=== PATIENT | male | born 2005 | race Caucasian/White ===

== ENCOUNTER 2023-04-27 21:24 | Emergency (ER) | payer OTHER, SELFPAY ==
[2023-04-27 21:30] VITALS: BP 156/86; PULSE 77; RESP 16; TEMP 36.6; O2SAT 100; BMI 21.6
[2023-04-27 21:45] VITALS: BP 156/86; BP 158/86; BP 165/90; PULSE 67; PULSE 73; PULSE 74; PULSE 77
--- NOTE | 2023-04-27 21:45 | ED_ITS ---
HPI - Dizziness General Chief Complaint: Dizziness Stated Complaint: Dizziness, Weakness Time Seen by Provider: 04/27/23 21:34 Source: patient Mode of arrival: walk-in History of Present Illness HPI Narrative: patient presents complaining of dizziness. States happened once at work yesterday and 3 times today. Describes working and becoming sweaty and nauseated and then sounds become muffled and he feels like he might pass out. he is able to sit down and symptoms resolved. No associated chest pain or palpitations. No sense of his heart racing in his chest. States he has been at this new job for 3 weeks. States he works 10 hour days. Before he work this much he would run 3 miles. Tried to run in the past couple of weeks and only ran a mild because his chest felt tight. He now arrives asymptomatic. Denies history of asthma or HTN MD elicited complaint: Reports near syncope Related Data Home Medications Medication Instructions Recorded Confirmed No Known Home Medications 04/27/23 04/27/23 Allergies Allergy/AdvReac Type Severity Reaction Status Date / Time No Known Drug Allergies Allergy Verified 04/27/23 21:38 Review of Systems ROS Status of ROS 10 or more systems reviewed and unremarkable except as noted in history and below [facility] PFS Social History Smoking status: Never smoker Exam Constitutional Vital Signs, click to edit/add: Last Vital Signs Temp 97.9 F 04/27/23 21:30 Pulse 77 04/27/23 21:45 Resp 16 04/27/23 21:30 BP 156/86 H 04/27/23 21:45 Pulse Ox 100 04/27/23 21:30 O2 Del Method Room Air 04/27/23 21:30 Common normals: no apparent distress, average body habitus, oriented x3, no limitations, healthy appearing, alert and well nourished Eye Common normals: PERRL, EOMs intact bilaterally, conjunctivae normal and no scleral icterus Respiratory Common normals: normal respiratory effort, no retractions, no use of accessory muscles and clear to auscultation bilaterally Cardio Common normals: regular rate, regular rhythm, S1 normal heart sound and S2 normal heart sound GI Common normals: Normal to inspection, nondistended, normoactive bowel sounds present, soft to palpation and non-tender Extremity Common normals: normal to inspection and full ROM Neuro Common normals: oriented x3, CN's II-XII intact bilaterally, moves all extremities, no focal motor deficits and no sensory deficits noted Psych Appearance: grossly normal Course Vital Signs Vital signs: Vital Signs Temperature 97.9 F 04/27/23 21:30 Pulse Rate 77 04/27/23 21:30 Respiratory Rate 16 04/27/23 21:30 Blood Pressure 156/86 H 04/27/23 21:30 Pulse Oximetry 100 04/27/23 21:30 Oxygen Delivery Method Room Air 04/27/23 21:30 Temperature 97.9 F 04/27/23 21:30 Pulse Rate 77 04/27/23 21:45 Respiratory Rate 16 04/27/23 21:30 Blood Pressure 156/86 H 04/27/23 21:45 Pulse Oximetry 100 04/27/23 21:30 Oxygen Delivery Method Room Air 04/27/23 21:30 MDM - Dizziness MDM Narrative Medical decision making narrative: patient presents with recurrent episodes of near syncope. Each time preceded by him sweating, becoming nauseated and then feeling light headed like he may pass out. Able to sit down each time before passing out and then recover. No associated cardiac sensation of tachycardia and no accompanying chest pain Troponin not detectable and d-dimer neg. Cxray clear. found to be hypothyroid which is new to him. patient informed of the working diagnosis of vaso vagal near syncope. Will treat with prilosec, have him drink plenty of fluids. Also provided with a prescription for Synthroid and advised to follow up with his doctor in the next couple of days for recheck and continued workup Lab Data Labs: Lab Results 04/27/23 04/27/23 04/27/23 Range/Units 21:53 21:55 23:11 WBC 5.3 (4.0-11.0) 10^3/uL RBC 5.67 (4.70-6.10) 10^6/uL Hgb 16.1 (14.0-18.0) g/dL Hct 47.3 (42.0-54.0) % MCV 83.4 (80.0-94.0) fL MCH 28.4 (25.9-34.0) pg MCHC 34.0 (29.9-35.2) g/dL RDW 13.2 (11.0-15.0) % Plt Count 199 (150-450) 10^3/uL MPV 10.4 (9.5-13.5) fL Neut % (Auto) 49.5 (43.0-75.0) % Lymph % (Auto) 41.4 (20.5-60.0) % [place] % (Auto) 7.0 (1.7-12.0) % Eos % (Auto) 1.3 (0.9-7.0) % Baso % (Auto) 0.6 (0.2-2.0) % Neut # (Auto) 2.6 (1.4-6.5) 10^3/uL Lymph # (Auto) 2.2 (1.2-3.8) 10^3/uL [place] # (Auto) 0.4 (0.3-0.8) 10^3/uL Eos # (Auto) 0.1 (0.0-0.7) 10^3/uL Baso # (Auto) 0.0 (0.0-0.1) 10^3/uL Abs Immat Gran (auto) 0.01 (0.00-0.03) 10^3/uL Imm/Tot Granulo (auto) 0.2 (0.0-0.5) % D-Dimer 0.33 (<=0.59) mg/L FEU Sodium 140 (136-145) mmol/L Potassium 3.3 L (3.5-5.1) mmol/L Chloride 103 (98-107) mmol/L Carbon Dioxide 27.5 (21.0-32.0) mmol/L Anion Gap 12.8 BUN 12.0 (6.4-19.3) mg/dL Creatinine 1.11 (0.70-1.30) mg/dL Est GFR ( Amer) >60 (>=60) Est GFR (Non-Af Amer) >60 (>=60) BUN/Creatinine Ratio 10.8 Glucose 98 (74-106) mg/dL Calcium 9.4 (8.5-10.1) mg/dL Total Bilirubin 0.3 (0.2-1.0) mg/dL Direct Bilirubin 0.1 (0.0-0.2) mg/dL AST 36 (15-37) U/L ALT 23 (16-63) U/L Alkaline Phosphatase 74 (46-116) U/L Troponin I High Sens <4.0 L (4.0-76.1) pg/mL Total Protein 8.4 H (6.4-8.2) g/dL Albumin 4.9 (3.4-5.0) g/dL Globulin 3.5 g/dL Albumin/Globulin Ratio 1.4 TSH 7.451 H (0.516-4.130) uIU/mL Free T4 0.86 (0.78-1.34) ng/dL Urine Opiates Screen Negative (NEGATIVE) Ur Buprenorphine Scrn Negative (NEGATIVE) Ur Oxycodone Screen Negative (NEGATIVE) Urine Methadone Screen Negative (NEGATIVE) Ur Propoxyphene Screen Negative (NEGATIVE) Ur Barbiturates Screen Negative (NEGATIVE) U Tricyclic Antidepress Negative (NEGATIVE) Ur Phencyclidine Scrn Negative (NEGATIVE) Ur Amphetamines Screen Negative (NEGATIVE) U Methamphetamines Scrn Negative (NEGATIVE) U Benzodiazepines Scrn Negative (NEGATIVE) Urine Cocaine Screen Negative (NEGATIVE) U Cannabinoids Screen Negative (NEGATIVE) POC Glucose 97 (74-106) mg/dL Discharge Plan Discharge Chief Complaint: Dizziness Clinical Impression: Hypothyroid, Near syncope Patient Disposition: Home, Self-Care Prescriptions / Home Meds: No Action No Known Home Medications Instructions: Hypothyroidism (ED), Near Syncope (ED) Additional Instructions: follow up with your doctor in next couple of days for recheck. Drink plenty of fluids. Return if episode recurs Stand Alone Forms: Portal Instructions Referrals: BUDDY RILEY [Primary Care Provider] - 1 week
--- NOTE | 2023-04-27 21:51 | ECG_ITS ---
[facility] Test Date: 2023-04-27 Pat Name: SAMSON RAMIREZ Department: Room: - Gender: Male Joint Terminal Attack Controller: : 2005 Requested By: [id number] Order Number: [id number] Reading MD: AARON KRISHNAMURTHY Measurements Intervals [place] Rate: 83 P: 79 IL: 134 QRS: 75 QRSD: 104 T: 43 QT: 374 QTc: 414 Interpretive Statements 1100 Sinus rhythm 2420 RSR (QR) in lead V1/V2, consistent with right ventricular conduction delay 9130 borderline ECG No previous ECG available for comparison Electronically Signed On 04-29-2023 5:47:31 EDT by AARON KRISHNAMURTHY
--- NOTE | 2023-04-27 21:51 | XR_ITS ---
[address] [address] Patient Name: SAMSON RAMIREZ MRN: [id number] date: 2005 Sex: M Assigned Patient Location: ER Current Patient Location: ER Accession/Order Number: [id number] Exam Date: 04/27/2023 22:10 Report Date: 04/27/2023 22:34 At the request of: JOSE REYES Procedure: XR chest 1V EXAMINATION: CHEST RADIOGRAPH (PORTABLE SINGLE VIEW AP) Exam Date/Time: 04/27/2023 10:10 PM EDT Clinical History: near syncope Comparison: None available RESULT: Lines, tubes, and devices: None. Lungs and pleura: No focal consolidation. No pneumothorax. No pleural effusion. Cardiomediastinal silhouette: Stable cardiomediastinal silhouette. No significant atherosclerotic calcification. Other: No acute osseous process. XR/XR chest 1V IMPRESSION: No acute cardiopulmonary abnormality. Electronically authenticated by: BEATIRZ GAGE Date: 04/27/2023 22:34
[2023-04-27 21:55] LABS: Glucometer 97 mg/dL (74-106)
[2023-04-27 22:08] LABS: Basophils Percent Auto 0.6 % (0.2-2.0); Eosinophils Absolute Auto 0.1 10^3/uL (0.0-0.7); Eosinophils Percent Auto 1.3 % (0.9-7.0); Hematocrit 47.3 % (42.0-54.0); Hemoglobin 16.1 g/dL (14.0-18.0); Immature Granulocytes Abs Auto 0.01 10^3/uL (0.00-0.03); Immature Granulocytes Pct Auto 0.2 % (0.0-0.5); Lymphocytes Absolute Auto 2.2 10^3/uL (1.2-3.8); Lymphocytes Percent Auto 41.4 % (20.5-60.0); Mean Corpuscular Hemoglobin 28.4 pg (25.9-34.0); Mean Corpuscular Volume 83.4 fL (80.0-94.0); Mean Platelet Volume 10.4 fL (9.5-13.5); Monocytes Absolute Auto 0.4 10^3/uL (0.3-0.8); Neutrophils Absolute Auto 2.6 10^3/uL (1.4-6.5); Neutrophils Percent Auto 49.5 % (43.0-75.0); Platelet Count 199 10^3/uL (150-450); Red Blood Count 5.67 10^6/uL (4.70-6.10); Red Cell Distribution Width 13.2 % (11.0-15.0); White Blood Count 5.3 10^3/uL (4.0-11.0)
[2023-04-27 22:22] LABS: D Dimer 0.33 mg/L FEU (<=0.59)
[2023-04-27 22:30] LABS: Anion Gap 12.8; BUN Creatinine Ratio 10.8; Calcium 9.4 mg/dL (8.5-10.1); Carbon Dioxide 27.5 mmol/L (21.0-32.0); Chloride 103 mmol/L (98-107); Estimated GFR (African America >60 (>=60); Estimated GFR (Non-African Ame >60 (>=60); Glucose 98 mg/dL (74-106); Potassium 3.3 mmol/L (3.5-5.1); Sodium 140 mmol/L (136-145); Troponin I High Sensitivity <4.0 pg/mL (4.0-76.1)
[2023-04-27 22:31] LABS: Free T4 0.86 ng/dL (0.78-1.34)
[2023-04-27 22:33] LABS: Alanine Aminotransferase 23 U/L (16-63); Albumin Globulin Ratio 1.4; Albumin Level 4.9 g/dL (3.4-5.0); Alkaline Phosphatase 74 U/L (46-116); Aspartate Amino Transferase 36 U/L (15-37); Bilirubin Direct 0.1 mg/dL (0.0-0.2); Bilirubin Total 0.3 mg/dL (0.2-1.0); Globulin 3.5 g/dL; Thyroid Stimulating Hormone 7.451 uIU/mL (0.516-4.130); Total Protein 8.4 g/dL (6.4-8.2)
[2023-04-27 23:39] LABS: Amphetamine Screen Urine NEGATIVE (NEGATIVE); Barbiturates Screen Urine NEGATIVE (NEGATIVE); Benzodiazepines Screen Urine NEGATIVE (NEGATIVE); Buprenorphine Screen Urine NEGATIVE (NEGATIVE); Cannabinoid Screen Urine NEGATIVE (NEGATIVE); Cocaine Screen Urine NEGATIVE (NEGATIVE); Methadone Screen Urine NEGATIVE (NEGATIVE); Methamphetamines Screen Urine NEGATIVE (NEGATIVE); Opiate Screen Urine NEGATIVE (NEGATIVE); Oxycodone Screen Urine NEGATIVE (NEGATIVE); Phencyclidine Screen Urine NEGATIVE (NEGATIVE); Tricyclic Antidepressant Urine NEGATIVE (NEGATIVE)
[2023-04-28] MEDS: OMEPRAZOLE 40 MG CAPSULE.DR PO (00:06)
== END 2023-04-28 00:18 | disposition home or self-care (01) ==
PROVIDERS: Emergency Provider Internal Medicine; PCP Family Medicine
DX: R55 Syncope and collapse (principal); E03.9 Hypothyroidism, unspecified
CPT/HCPCS: 36415; 71045; 80048; 80076; 80307; 84439; 84443; 84484; 85025; 85378; 93005; 99285

== ENCOUNTER 2023-08-09 18:09 | Emergency (ER) | payer SELFPAY ==
[2023-08-09 18:15] VITALS: BP 173/89; PULSE 80; RESP 16; TEMP 36.7; O2SAT 100; BMI 22.8
--- NOTE | 2023-08-09 18:15 | XR_ITS ---
[place] [id number] Patient Name: SAMSON RAMIREZ MRN: [id number] date: 2005 Sex: M Assigned Patient Location: ED.MAIN Current Patient Location: ED.MAIN Accession/Order Number: [id number] Exam Date: 08/09/2023 18:30 Report Date: 08/09/2023 18:56 At the request of: GLO HAWTHORNE Procedure: XR ankle LT min 3V EXAM: XR ankle LT min 3V HISTORY: Fall in a hole COMPARISON: None. TECHNIQUE: 3 views FINDINGS: No osseous lesion, fracture, dislocation or subluxation. Joint spaces are normal. No visualized effusion. No visualized soft tissue edema. XR/XR ankle LT min 3V IMPRESSION: Normal x-rays Electronically authenticated by: KARINA HANCOCK Date: 08/09/2023 18:56
--- NOTE | 2023-08-09 18:15 | ED.LOWEXI1 ---
HPI - Extremity Injury (Lower) General Chief Complaint: Extremity Injury, Lower Stated Complaint: Injured L foot Time Seen by Provider: 08/09/23 18:14 History of Present Illness HPI Narrative: 17-year-old male presents for left ankle pain. He was running today and he twisted his ankle. He points to the anterior ankle to indicate area of pain. No pain in the foot or knee and no other injury was sustained. Related Data Home Medications Medication Instructions Recorded Confirmed levothyroxine 50 mcg tablet 50 mcg PO DAILY 08/09/23 08/09/23 Allergies Allergy/AdvReac Type Severity Reaction Status Date / Time No Known Drug Allergies Allergy Verified 08/09/23 18:18 Review of Systems ROS Narrative A ten point review of systems is negative except as noted above. PFSH PFSH Social History Smoking status: Never smoker Exam Narrative Exam Narrative: Nurses note and vital signs reviewed and patient is not hypoxic. General: The patient appears well and in no apparent distress. Patient is resting comfortably on cart. Skin: Warm, dry, no pallor noted. There is no rash noted. Head: Normocephalic, atraumatic Eye: Normal conjunctiva, no drainage Ears, Nose, Mouth, and Throat: oral mucosa is moist. Nares patent. Cardiovascular: Regular Rate and Rhythm Respiratory: Patient is in no distress, no accessory muscle use, lungs are clear to auscultation, no wheezing, rales or rhonchi Back: non-tender GI: often nontender Musculoskeletal: no tenderness in the left knee. The left foot is nontender including the 5th metatarsal area. He seems to have some tenderness on the anterior ankle where the skin is intact and there is no deformity or bruising. Neurological: A&O, normal speech Psychiatric: Cooperative MDM - Extremity Injury (Lower) MDM Narrative Medical decision making narrative: x-rays ordered and the patient is signed out to Dr. Hdez. Differential Diagnosis Differential diagnosis: Likely ankle sprain and strain and ankle fracture Discharge Plan Discharge Chief Complaint: Extremity Injury, Lower Clinical Impression: Acute ankle pain Patient Disposition: Still a Patient Prescriptions / Home Meds: No Action levothyroxine 50 mcg tablet 50 mcg PO DAILY Referrals: BUDDY RILEY [Primary Care Provider] - 1 week
== END 2023-08-09 19:25 | disposition home or self-care (01) ==
PROVIDERS: Emergency Provider Internal Medicine; PCP Family Medicine
DX: S93.402A Sprain of unspecified ligament of left ankle, initial encounter (principal); X50.1XXA Overexertion from prolonged static or awkward postures, initial encounter; Y93.02 Activity, running; Z79.890 Hormone replacement therapy
CPT/HCPCS: 73610; 99283